=== PATIENT | male | born 1940 | race Caucasian/White ===

== ENCOUNTER 2016-02-05 04:34 | Observation (INO) | payer OTHER ==
[~2016-02-05] VITALS: Ht 185.4 cm; Wt 96.0 kg
[~2016-02-05 04:34] MED LIST: ALLEGRA180 MG PO; AMBIEN10 MG; ASPIR 8181 MG PO; ASPIRIN81 M1 PO; ATIVAN1 M1 PO; ATIVAN1 MG PO; Ambien PO; Aspirin E.C. PO; Ativan PO; BACTRIM,SEPT1 TABLET; BENICAR HCT1 TABLET PO; Bactrim,Septra DS 80 PO; CEFUROXIME500 MG PO; CHILD ASPIRIN81 M1 PO; CLARITIN-D 121 EACH PO; COUMADIN,JANTOVE1 MG PO; Cipro PO; DESYREL100 MG PO; DUONEB 2.5-0.5 M3 ML AEROSOL; DUONEB 2.5-0.5 M3 ML IH; FEOSOL325 MG PO; FLONASE16 G1; FLONASE16 G1 BOTH NARES; Flonase BOTH NARES; GABAPENTIN100 MG PO; GABAPENTIN300 MG PO; LEVAQUIN500 MG PO; LIPITOR40 MG PO; MICARDIS40 MG PO; MONTELUKAST SOD10 MG PO; Micro-K,K-Tab,K-Dur, PO; Milk Of Magnesia,MOM PO; NIASPAN500 MG PO; NIFEDIPINE ER30 MG PO; Niaspan,Slo-Niacin PO; ONE DAILY FOR1 EACH; OXYCODONE5 MG PO; Ocean Nasal 0.65% NS; PERCOCET 7.51 TABLET PO; PLAVIX75 MG PO; PREDNISONE10 M1 PO; PREDNISONE10 MG PO; Percocet 5/325,Endoc PO; Phenergan PO; Plavix PO; Protonix PO; SIMVASTATIN40 M1 PO; SIMVASTATIN40 MG PO; SPIRIVA1 INHALATI IH; SYMBICORT IH; SYMBICORT60 INHALAT IH; THERAGRAN1 TABLET PO; Tylenol Regular Stre PO; ULTRAM50 MG PO; VENTOLIN HFA18 GM IH; VITAMIN A DAY1 EACH PO; ZYRTEC10 M3 PO; Zocor PO; oxyCODONE PO
[2016-02-05 05:34] LABS: HEMATOCRIT 36.2 % (38.0-50.0); MCH 31.6 PG (29.0-34.0); MCHC 32.9 G/DL (30.0-36.0); MCV 96.3 FL (86-99); MEAN PLAT.VOLUME 9.2 uM^3 (9.0-12.4); PLATELET COUNT 266 K/uL (156-360); RBC DIS.WIDTH-CV 16.2 % (11.8-14.6); RBC DIS.WIDTH-SD 54.1 % (39-53); RED BLOOD COUNT 3.76 M/uL (4.00-5.50); WHITE BLOOD COUNT 7.8 K/uL (4.1-10.2)
[2016-02-05 05:36] LABS: EOSINOPHIL (%) 1.9 % (0-5); EOSINOPHIL COUNT 0.2 K/uL (0-0.3); IMMATURE GRANULOCYTE (%) 0.9 % (0.0-0.7); IMMATURE GRANULOCYTE COUNT 0.7 K/uL; LYMPHOCYTE COUNT 1.4 K/uL (1.0-2.8); MONOCYTE (%) 9.8 % (3-12); MONOCYTE COUNT 0.8 K/uL (0-0.8); NEUTROPHIL (%) 68.9 % (45-76); NEUTROPHIL COUNT 5.4 K/uL (1.8-6.4)
[2016-02-05 05:41] LABS: INFLUENZA A VIRAL ANTIGEN NEGATIVE; INFLUENZA B VIRAL ANTIGEN NEGATIVE
[2016-02-05] MEDS ORDERED: MELATIN3 MG PO (05:43)
[2016-02-05 05:44] LABS: CHLORIDE 101 mEq/L (99-109); POTASSIUM 3.6 mEq/L (3.7-5.4); SODIUM 137 mEq/L (136-147)
[2016-02-05 05:46] LABS: GLUCOSE 131 mg/dL (70-99)
[2016-02-05] MEDS ORDERED: ANTIVERT25 MG PO (05:46)
[2016-02-05 05:47] LABS: ANION GAP 13 MEQ/L (2-14)
[2016-02-05 05:48] LABS: TOTAL BILIRUBIN 0.4 mg/dL (0.0-1.0)
[2016-02-05 05:49] LABS: ALKALINE PHOSPHATASE 50 IU/L (3-129)
[2016-02-05 05:50] LABS: GFR ESTIMATE (CALCULATED) > 59 mL/min/
[2016-02-05 05:51] LABS: UREA NITROGEN (BUN) 13 mg/dL (9-23)
[2016-02-05 05:53] LABS: LIPASE 4 U/L (1.0-51.0); TROP-I INTERPRETATION NEGATIVE; TROPONIN-I 0.01 ng/mL (0.0-0.30)
[2016-02-05] MEDS ORDERED: CIPROFLOXACIN500 M1 PO (09:25)
[2016-02-05] MEDS ORDERED: ZOLPIDEM TARTRA10 MG PO (09:26)
[2016-02-05] MEDS ORDERED: NASAL ALLERGY16.9 ML BOTH NARES (09:26)
[2016-02-05] MEDS ORDERED: ADVIL PM1 TABLET PO (09:28)
[2016-02-05 13:00] VITALS: BP 164/78
[2016-02-05 16:00] VITALS: BP 188/83
[2016-02-05 21:33] VITALS: BP 184/79
[2016-02-06 08:07] VITALS: BP 125/60
[2016-02-06 11:53] VITALS: BP 135/68
[2016-02-06 16:13] VITALS: BP 152/74
[2016-02-06 19:30] VITALS: BP 140/68
[2016-02-07 00:08] VITALS: BP 120/65
[2016-02-07 04:32] VITALS: BP 140/64
[2016-02-07 05:58] LABS: HEMATOCRIT 34.2 % (38.0-50.0); MCH 31.7 PG (29.0-34.0); MCHC 32.2 G/DL (30.0-36.0); MCV 98.6 FL (86-99); MEAN PLAT.VOLUME 9.3 uM^3 (9.0-12.4); PLATELET COUNT 258 K/uL (156-360); RBC DIS.WIDTH-CV 16.7 % (11.8-14.6); RBC DIS.WIDTH-SD 59.4 % (39-53); RED BLOOD COUNT 3.47 M/uL (4.00-5.50); WHITE BLOOD COUNT 6.1 K/uL (4.1-10.2)
[2016-02-07 06:45] LABS: ALKALINE PHOSPHATASE 39 IU/L (3-129); ANION GAP 7 MEQ/L (2-14); CHLORIDE 109 MEQ/L (99-109); GFR ESTIMATE (CALCULATED) > 59 mL/min/; GLUCOSE 99 mg/dL (70-99); POTASSIUM 3.4 MEQ/L (3.7-5.4); SAMPLE HEMOLYSIS CHECK 0; SAMPLE ICTERIC CHECK 0; SAMPLE LIPEMIA CHECK 0; SODIUM 141 MEQ/L (136-147); TOTAL BILIRUBIN 0.4 MG/DL (0.0-1.0); UREA NITROGEN (BUN) 16 mg/dL (9-23)
[2016-02-07 08:00] VITALS: BP 109/57
[2016-02-07 11:20] VITALS: BP 143/69
[2016-02-07] MEDS ORDERED: MUCINEX600 MG PO (12:29)
[2016-02-07] MEDS ORDERED: AUGMENTIN875 MG PO (12:29)
== END 2016-02-07 14:15 | disposition home or self-care (01) ==
LOC: EME → EDBD 04:34 → EDOF 09:35 → 5WEST 13:06
PROVIDERS: Emergency Medicine; Internal Medicine
DX: M62.838 Other muscle spasm (principal); I10 Essential (primary) hypertension; J44.9 Chronic obstructive pulmonary disease, unspecified; Z99.81 Dependence on supplemental oxygen; J32.9 Chronic sinusitis, unspecified; R47.81 Slurred speech; R51 Headache; R25.1 Tremor, unspecified; M19.90 Unspecified osteoarthritis, unspecified site
CPT/HCPCS: 70496; 70498; 70551; 71020; 80053; 83605; 83690; 84443; 84484; 85025; 85027; 87040; 87502; 93005; 94640; 94640 76; 94760; 94799; 99202; 99281; 99285; G0378; J0692; J1200; J1650; J7030; J7050

== ENCOUNTER 2016-06-02 17:40 | Inpatient (IN) | payer OTHER ==
[~2016-06-02] VITALS: Ht 185.4 cm; Wt 96.5 kg
[~2016-06-02 17:40] MED LIST changes: +ADVIL PM1 TABLET PO; +ANTIVERT25 MG PO; +AUGMENTIN875 MG PO; +CIPROFLOXACIN500 M1 PO; +MELATIN3 MG PO; +MUCINEX600 MG PO; +NASAL ALLERGY16.9 ML BOTH NARES; +ZOLPIDEM TARTRA10 MG PO
[2016-06-02 18:41] LABS: HEMATOCRIT 36.5 % (38.0-50.0); MCH 29.2 PG (29.0-34.0); MCHC 33.2 G/DL (30.0-36.0); MCV 88.2 FL (86-99); MEAN PLAT.VOLUME 10.1 uM^3 (9.0-12.4); PLATELET COUNT 184 K/uL (156-360); RBC DIS.WIDTH-CV 17.2 % (11.8-14.6); RBC DIS.WIDTH-SD 54.7 % (39-53); RED BLOOD COUNT 4.14 M/uL (4.00-5.50); WHITE BLOOD COUNT 14.5 K/uL (4.1-10.2)
[2016-06-02 18:52] LABS: CHLORIDE 100 mEq/L (99-109); POTASSIUM 5.1 mEq/L (3.7-5.4); SODIUM 135 mEq/L (136-147)
[2016-06-02 18:54] LABS: GLUCOSE 161 mg/dL (70-99)
[2016-06-02 18:55] LABS: ANION GAP 15 MEQ/L (2-14)
[2016-06-02 18:58] LABS: GFR ESTIMATE (CALCULATED) > 59 mL/min/; UREA NITROGEN (BUN) 37 mg/dL (9-23)
[2016-06-02 19:04] LABS: TROP-I INTERPRETATION NEGATIVE; TROPONIN-I 0.07 ng/mL (0.0-0.30)
[2016-06-02 19:05] LABS: BILIRUBIN NEGATIVE; BLOOD NEGATIVE; COLOR YELLOW ((YELLOW)); GLUCOSE (STRIP) NEGATIVE; KETONES NEGATIVE; LEUKOCYTES NEGATIVE; NITRITE NEGATIVE; PROTEIN (STRIP) NEGATIVE; SPECIFIC GRAVITY 1.018 (1.000-1.030); UROBILINOGEN 0.2 MG/DL (0.2-1.0)
[2016-06-02 19:24] LABS: ADD MIUA? NO; UCUL ADDED? NO
[2016-06-02 19:35] LABS: D-DIMER ELISA 0.84 mg/L FEU (< 0.57)
[2016-06-02] MEDS ORDERED: AMBIEN10 MG PO (21:00)
[2016-06-02] MEDS ORDERED: ANTIVERT25 MG PO (21:01)
[2016-06-02] MEDS ORDERED: ALKA-SELTZER P1 EA11 PO (21:01)
[2016-06-02] MEDS ORDERED: DECADRON4 MG PO (21:02)
[2016-06-02 22:05] LABS: PROTHROMBIN TIME 10.1 (9.2-11.2); PTT 20.5 (25-32)
[2016-06-03 14:45] VITALS: BP 154/72
[2016-06-03 17:20] LABS: ANION GAP 8 MEQ/L (2-14); CHLORIDE 102 MEQ/L (99-109); POTASSIUM 3.4 MEQ/L (3.7-5.4); SAMPLE HEMOLYSIS CHECK 0; SAMPLE ICTERIC CHECK 0; SAMPLE LIPEMIA CHECK 0; SODIUM 137 MEQ/L (136-147); TOTAL BILIRUBIN 0.4 MG/DL (0.0-1.0)
[2016-06-03 17:25] LABS: ALKALINE PHOSPHATASE 41 IU/L (3-129); GFR ESTIMATE (CALCULATED) > 59 mL/min/; GLUCOSE 161 mg/dL (70-99); UREA NITROGEN (BUN) 37 mg/dL (9-23)
[2016-06-03 17:30] LABS: TROP-I INTERPRETATION NEGATIVE; TROPONIN-I 0.08 ng/mL (0.0-0.30)
[2016-06-03 20:44] VITALS: BP 154/88
[2016-06-03 23:44] VITALS: BP 158/82
[2016-06-04 03:39] VITALS: BP 170/88
[2016-06-04 08:00] VITALS: BP 196/91
[2016-06-04 12:00] VITALS: BP 118/56
[2016-06-04 15:44] VITALS: BP 128/64
[2016-06-04 19:09] VITALS: BP 130/57
[2016-06-04 23:53] VITALS: BP 131/61
[2016-06-05 04:29] VITALS: BP 150/67
[2016-06-05 07:03] LABS: ALKALINE PHOSPHATASE 34 IU/L (3-129); ANION GAP 7 MEQ/L (2-14); CHLORIDE 103 MEQ/L (99-109); GFR ESTIMATE (CALCULATED) > 59 mL/min/; POTASSIUM 3.5 MEQ/L (3.7-5.4); SAMPLE HEMOLYSIS CHECK 0; SAMPLE ICTERIC CHECK 0; SAMPLE LIPEMIA CHECK 0; SODIUM 138 MEQ/L (136-147); UREA NITROGEN (BUN) 37 mg/dL (9-23)
[2016-06-05 07:11] LABS: GLUCOSE 95 mg/dL (70-99); TOTAL BILIRUBIN 0.5 MG/DL (0.0-1.0)
[2016-06-05 07:15] VITALS: BP 98/51
[2016-06-05 07:42] LABS: HEMATOCRIT 31.8 % (38.0-50.0); MCH 28.6 PG (29.0-34.0); MCHC 30.8 G/DL (30.0-36.0); MEAN PLAT.VOLUME 9.5 uM^3 (9.0-12.4); NRBC (%) 0.2 /100 WBC (0-0); PLATELET COUNT 132 K/uL (156-360); RBC DIS.WIDTH-CV 17.4 % (11.8-14.6); RED BLOOD COUNT 3.43 M/uL (4.00-5.50)
[2016-06-05 08:07] LABS: MCV 92.7 FL (86-99); WHITE BLOOD COUNT 9.8 K/uL (4.1-10.2)
[2016-06-05 11:50] VITALS: BP 130/56
[2016-06-05 15:17] VITALS: BP 125/61
[2016-06-05 20:30] VITALS: BP 130/54
[2016-06-06] VITALS (7 sets, daily range): BP systolic 102–136; BP diastolic 52–63
[2016-06-06 05:58] LABS: HEMATOCRIT 28.3 % (38.0-50.0); MCH 28.9 PG (29.0-34.0); MCHC 31.1 G/DL (30.0-36.0); MCV 93.1 FL (86-99); MEAN PLAT.VOLUME 10.6 uM^3 (9.0-12.4); NRBC (%) 0.2 /100 WBC (0-0); PLATELET COUNT 130 K/uL (156-360); RBC DIS.WIDTH-CV 17.6 % (11.8-14.6); RBC DIS.WIDTH-SD 59.6 % (39-53); RED BLOOD COUNT 3.04 M/uL (4.00-5.50); WHITE BLOOD COUNT 8.2 K/uL (4.1-10.2)
[2016-06-06 06:23] LABS: ALKALINE PHOSPHATASE 33 IU/L (3-129); ANION GAP 8 MEQ/L (2-14); CHLORIDE 107 MEQ/L (99-109); GFR ESTIMATE (CALCULATED) > 59 mL/min/; GLUCOSE 121 mg/dL (70-99); POTASSIUM 3.4 MEQ/L (3.7-5.4); SAMPLE HEMOLYSIS CHECK 0; SAMPLE ICTERIC CHECK 0; SAMPLE LIPEMIA CHECK 0; SODIUM 141 MEQ/L (136-147); TOTAL BILIRUBIN 0.4 MG/DL (0.0-1.0); UREA NITROGEN (BUN) 38 mg/dL (9-23)
[2016-06-07 04:33] VITALS: BP 103/57
[2016-06-07 09:00] VITALS: BP 106/59
[2016-06-07 10:11] LABS: LYME DISEASE SEROLOGY SCREEN NEGATIVE (NEGATIVE)
[2016-06-07 12:30] VITALS: BP 105/51
[2016-06-07 18:20] VITALS: BP 130/60
[2016-06-07 20:07] VITALS: BP 127/60
[2016-06-07 23:47] VITALS: BP 107/52
[2016-06-08 05:39] VITALS: BP 138/59
[2016-06-08 06:24] LABS: EOSINOPHIL COUNT 0.4 K/uL (0-0.3); HEMATOCRIT 27.9 % (38.0-50.0); IMMATURE GRANULOCYTE COUNT 0.1 K/uL; LYMPHOCYTE COUNT 1.4 K/uL (1.0-2.8); MCH 28.8 PG (29.0-34.0); MCHC 30.8 G/DL (30.0-36.0); MCV 93.3 FL (86-99); MEAN PLAT.VOLUME 9.8 uM^3 (9.0-12.4); MONOCYTE (%) 7.2 % (3-12); MONOCYTE COUNT 0.5 K/uL (0-0.8); NEUTROPHIL (%) 63.4 % (45-76); PLATELET COUNT 156 K/uL (156-360); RBC DIS.WIDTH-CV 17.6 % (11.8-14.6); RBC DIS.WIDTH-SD 59.3 % (39-53); RED BLOOD COUNT 2.99 M/uL (4.00-5.50); WHITE BLOOD COUNT 6.4 K/uL (4.1-10.2)
[2016-06-08 06:48] LABS: IRON 48 MCG/DL (35-150)
[2016-06-08 06:52] LABS: ALKALINE PHOSPHATASE 33 IU/L (3-129); ANION GAP 8 MEQ/L (2-14); CHLORIDE 104 MEQ/L (99-109); GFR ESTIMATE (CALCULATED) > 59 mL/min/; GLUCOSE 95 mg/dL (70-99); POTASSIUM 3.3 MEQ/L (3.7-5.4); SAMPLE HEMOLYSIS CHECK 0; SAMPLE ICTERIC CHECK 0; SAMPLE LIPEMIA CHECK 0; SODIUM 139 MEQ/L (136-147); UREA NITROGEN (BUN) 26 mg/dL (9-23)
[2016-06-08 06:54] LABS: TOTAL BILIRUBIN 0.3 MG/DL (0.0-1.0)
[2016-06-08 07:47] VITALS: BP 108/51
[2016-06-08 07:55] LABS: FERRITIN 69 NG/ML (22-322)
[2016-06-08 11:51] VITALS: BP 99/48
[2016-06-08 16:18] VITALS: BP 113/65
[2016-06-08 19:00] VITALS: BP 120/74
[2016-06-08 23:24] VITALS: BP 113/53
[2016-06-09 04:10] VITALS: BP 159/67
[2016-06-09 06:35] LABS: HEMATOCRIT 27.3 % (38.0-50.0); MCHC 30.4 G/DL (30.0-36.0); MCV 95.5 FL (86-99); NRBC (%) 0.8 /100 WBC (0-0); PLATELET COUNT 169 K/uL (156-360); RBC DIS.WIDTH-CV 18.2 % (11.8-14.6); RBC DIS.WIDTH-SD 63.1 % (39-53); RED BLOOD COUNT 2.86 M/uL (4.00-5.50); WHITE BLOOD COUNT 6.6 K/uL (4.1-10.2)
[2016-06-09 06:59] LABS: ALKALINE PHOSPHATASE 39 IU/L (3-129); ANION GAP 6 MEQ/L (2-14); ANION GAP 8 MEQ/L (2-14); CHLORIDE 107 MEQ/L (99-109); CHLORIDE 108 MEQ/L (99-109); GFR ESTIMATE (CALCULATED) > 59 mL/min/; GLUCOSE 122 mg/dL (70-99); SAMPLE HEMOLYSIS CHECK 0; SAMPLE ICTERIC CHECK 0; SAMPLE LIPEMIA CHECK 0; SODIUM 140 MEQ/L (136-147); UREA NITROGEN (BUN) 24 mg/dL (9-23)
[2016-06-09 07:08] LABS: GLUCOSE 119 mg/dL (70-99); POTASSIUM 4.4 MEQ/L (3.7-5.4); POTASSIUM 4.5 MEQ/L (3.7-5.4); TOTAL BILIRUBIN 0.4 MG/DL (0.0-1.0)
[2016-06-09 07:23] VITALS: BP 139/67
[2016-06-09 12:38] VITALS: BP 102/52
[2016-06-09 15:43] LABS: ANTI-NUCLEAR AB SCRN/RFLX(ANA) NONREACTIVE (NONREACTIVE)
[2016-06-09 20:40] VITALS: BP 166/69
[2016-06-10] VITALS (10 sets, daily range): BP systolic 97–159; BP diastolic 55–86
[2016-06-10 06:58] LABS: HEMATOCRIT 25.1 % (38.0-50.0); MCH 29.8 PG (29.0-34.0); MCHC 31.1 G/DL (30.0-36.0); MCV 95.8 FL (86-99); MEAN PLAT.VOLUME 9.7 uM^3 (9.0-12.4); NRBC (%) 0.6 /100 WBC (0-0); PLATELET COUNT 172 K/uL (156-360); RBC DIS.WIDTH-CV 18.3 % (11.8-14.6); RBC DIS.WIDTH-SD 63.5 % (39-53); RED BLOOD COUNT 2.62 M/uL (4.00-5.50); WHITE BLOOD COUNT 6.5 K/uL (4.1-10.2)
[2016-06-11] VITALS: BP 93/45
[2016-06-11 04:58] VITALS: BP 153/67
[2016-06-11 06:44] LABS: EOSINOPHIL (%) 5.3 % (0-5); EOSINOPHIL COUNT 0.3 K/uL (0-0.3); HEMATOCRIT 29.1 % (38.0-50.0); IMMATURE GRANULOCYTE (%) 3.3 % (0.0-0.7); IMMATURE GRANULOCYTE COUNT 0.2 K/uL; LYMPHOCYTE COUNT 1.1 K/uL (1.0-2.8); MCH 29.8 PG (29.0-34.0); MCV 93.3 FL (86-99); MEAN PLAT.VOLUME 9.5 uM^3 (9.0-12.4); MONOCYTE (%) 10.4 % (3-12); MONOCYTE COUNT 0.7 K/uL (0-0.8); NEUTROPHIL (%) 63.3 % (45-76); NRBC (%) 1.6 /100 WBC (0-0); PLATELET COUNT 182 K/uL (156-360); RBC DIS.WIDTH-CV 17.9 % (11.8-14.6); RBC DIS.WIDTH-SD 59.5 % (39-53); RED BLOOD COUNT 3.12 M/uL (4.00-5.50); WHITE BLOOD COUNT 6.3 K/uL (4.1-10.2)
[2016-06-11 07:37] VITALS: BP 125/60
[2016-06-11 11:34] VITALS: BP 109/54
[2016-06-11 12:01] LABS: ANION GAP 6 MEQ/L (2-14); CHLORIDE 107 MEQ/L (99-109); GFR ESTIMATE (CALCULATED) > 59 mL/min/; GLUCOSE 100 mg/dL (70-99); SAMPLE HEMOLYSIS CHECK 0; SAMPLE ICTERIC CHECK 0; SAMPLE LIPEMIA CHECK 0; SODIUM 137 MEQ/L (136-147); UREA NITROGEN (BUN) 8 mg/dL (9-23)
[2016-06-11 12:04] LABS: POTASSIUM 5.3 MEQ/L (3.7-5.4)
[2016-06-11 16:00] VITALS: BP 129/69
[2016-06-11 20:03] VITALS: BP 151/68
[2016-06-12] VITALS (7 sets, daily range): BP systolic 94–137; BP diastolic 56–65
[2016-06-12 06:09] LABS: EOSINOPHIL (%) 5.2 % (0-5); EOSINOPHIL COUNT 0.3 K/uL (0-0.3); IMM.RETIC FRACTION 34.6 % (3-19); IMMATURE GRANULOCYTE (%) 4.2 % (0.0-0.7); IMMATURE GRANULOCYTE COUNT 0.3 K/uL; INSTRUMENT ABS NEUTROPHIL CT 3.8 K/uL; LYMPHOCYTE COUNT 1.1 K/uL (1.0-2.8); MCH 29.4 PG (29.0-34.0); MCHC 31.1 G/DL (30.0-36.0); MCV 94.6 FL (86-99); MEAN PLAT.VOLUME 9.3 uM^3 (9.0-12.4); MONOCYTE (%) 11.4 % (3-12); MONOCYTE COUNT 0.7 K/uL (0-0.8); NEUTROPHIL (%) 61.8 % (45-76); NEUTROPHIL COUNT 3.8 K/uL (1.8-6.4); NRBC (%) 0.7 /100 WBC (0-0); PLATELET COUNT 175 K/uL (156-360); RBC DIS.WIDTH-CV 17.6 % (11.8-14.6); RBC DIS.WIDTH-SD 60.2 % (39-53); RED BLOOD COUNT 2.96 M/uL (4.00-5.50); RETIC HGB EQUIVALENT 29.6 (28-36); RETICULOCYTE COUNT 3.1 % (0.5-1.8); WHITE BLOOD COUNT 6.1 K/uL (4.1-10.2)
[2016-06-12 06:59] LABS: ANION GAP 5 MEQ/L (2-14); CHLORIDE 101 MEQ/L (99-109); POTASSIUM 4.5 MEQ/L (3.7-5.4); SAMPLE HEMOLYSIS CHECK 0; SAMPLE ICTERIC CHECK 0; SAMPLE LIPEMIA CHECK 0; SODIUM 134 MEQ/L (136-147)
[2016-06-12 07:04] LABS: GFR ESTIMATE (CALCULATED) > 59 mL/min/; GLUCOSE 96 mg/dL (70-99); UREA NITROGEN (BUN) 7 mg/dL (9-23)
[2016-06-13 03:45] VITALS: BP 118/60
[2016-06-13 06:40] LABS: EOSINOPHIL (%) 5.8 % (0-5); EOSINOPHIL COUNT 0.3 K/uL (0-0.3); HEMATOCRIT 27.5 % (38.0-50.0); IMMATURE GRANULOCYTE (%) 2.5 % (0.0-0.7); IMMATURE GRANULOCYTE COUNT 0.1 K/uL; INSTRUMENT ABS NEUTROPHIL CT 3.4 K/uL; LYMPHOCYTE COUNT 0.9 K/uL (1.0-2.8); MCH 29.8 PG (29.0-34.0); MCHC 31.3 G/DL (30.0-36.0); MCV 95.2 FL (86-99); MEAN PLAT.VOLUME 9.6 uM^3 (9.0-12.4); MONOCYTE (%) 13.5 % (3-12); MONOCYTE COUNT 0.8 K/uL (0-0.8); NEUTROPHIL (%) 61.4 % (45-76); NEUTROPHIL COUNT 3.4 K/uL (1.8-6.4); PLATELET COUNT 205 K/uL (156-360); RBC DIS.WIDTH-CV 17.2 % (11.8-14.6); RBC DIS.WIDTH-SD 59.7 % (39-53); RED BLOOD COUNT 2.89 M/uL (4.00-5.50); WHITE BLOOD COUNT 5.5 K/uL (4.1-10.2)
[2016-06-13 07:04] LABS: ANION GAP 8 MEQ/L (2-14); CHLORIDE 104 MEQ/L (99-109); GFR ESTIMATE (CALCULATED) > 59 mL/min/; GLUCOSE 102 mg/dL (70-99); POTASSIUM 4.3 MEQ/L (3.7-5.4); SAMPLE HEMOLYSIS CHECK 0; SAMPLE ICTERIC CHECK 0; SAMPLE LIPEMIA CHECK 0; SODIUM 137 MEQ/L (136-147); UREA NITROGEN (BUN) 11 mg/dL (9-23)
[2016-06-13 07:58] VITALS: BP 106/52
[2016-06-13 10:01] LABS: ALBUMIN 2.72 G/DL (3.6-4.9); ALBUMIN PERCENT 55.5 %; ALPHA-1 GLOBULIN 0.29 G/DL (0.15-0.40); ALPHA-1 PERCENT 5.9 %; ALPHA-2 GLOBULIN 0.86 G/DL (0.45-0.85); ALPHA-2 PERCENT 17.6 %
[2016-06-13 10:02] LABS: BETA PERCENT 14.6 %; GAMMA PERCENT 6.4 %
[2016-06-13 11:19] VITALS: BP 109/54
[2016-06-13 15:56] VITALS: BP 114/56
[2016-06-13 19:00] VITALS: BP 133/61
[2016-06-13 23:34] VITALS: BP 100/50
[2016-06-14 04:18] VITALS: BP 125/56
[2016-06-14 07:01] LABS: EOSINOPHIL (%) 5.3 % (0-5); EOSINOPHIL COUNT 0.4 K/uL (0-0.3); HEMATOCRIT 27.9 % (38.0-50.0); IMMATURE GRANULOCYTE (%) 2.3 % (0.0-0.7); IMMATURE GRANULOCYTE COUNT 0.2 K/uL; INSTRUMENT ABS NEUTROPHIL CT 4.4 K/uL; LYMPHOCYTE COUNT 0.9 K/uL (1.0-2.8); MCH 29.2 PG (29.0-34.0); MCHC 30.5 G/DL (30.0-36.0); MCV 95.9 FL (86-99); MEAN PLAT.VOLUME 9.7 uM^3 (9.0-12.4); MONOCYTE (%) 13.3 % (3-12); MONOCYTE COUNT 0.9 K/uL (0-0.8); NEUTROPHIL (%) 65.4 % (45-76); NEUTROPHIL COUNT 4.4 K/uL (1.8-6.4); PLATELET COUNT 243 K/uL (156-360); RBC DIS.WIDTH-CV 17.2 % (11.8-14.6); RBC DIS.WIDTH-SD 59.8 % (39-53); RED BLOOD COUNT 2.91 M/uL (4.00-5.50); WHITE BLOOD COUNT 6.6 K/uL (4.1-10.2)
[2016-06-14 07:06] VITALS: BP 123/56
[2016-06-14 07:34] LABS: ALKALINE PHOSPHATASE 42 IU/L (3-129); ANION GAP 5 MEQ/L (2-14); CHLORIDE 104 MEQ/L (99-109); GFR ESTIMATE (CALCULATED) > 59 mL/min/; GLUCOSE 106 mg/dL (70-99); POTASSIUM 4.5 MEQ/L (3.7-5.4); SAMPLE HEMOLYSIS CHECK 0; SAMPLE ICTERIC CHECK 0; SAMPLE LIPEMIA CHECK 0; SODIUM 139 MEQ/L (136-147); UREA NITROGEN (BUN) 11 mg/dL (9-23)
[2016-06-14 07:35] LABS: TOTAL BILIRUBIN 0.7 MG/DL (0.0-1.0)
[2016-06-14 10:24] LABS: IFE GEL NO. 56-7
[2016-06-14 10:45] LABS: ABS NEUTROPHIL COUNT 5.1; ANISOCYTOSIS 2+; ATYPICAL LYMPHOCYTE 2.6 %; BAND NEUTROPHILS 0.9 % (0-8.0); BASOPHILS 0.9 %; EOSINOPHIL ABS CT 0.3; EOSINOPHILS 5.3 % (0-5.0); LYMPHOCYTES 6.1 % (15.0-45.0); MACROCYTES 1+; METAMYELOCYTES 0.9 %; MICROCYTOSIS 1+; MYELOCYTES 0.9 %; PLAT.SUFFICIENCY ADEQUATE; POLYCHROMASIA 1+; SCHISTOCYTES 1+; SEG.NEUTROPHILS 76.3 % (46.0-76.0)
[2016-06-14 11:49] VITALS: BP 100/53
[2016-06-14] MEDS ORDERED: TAMSULOSIN HCL0.4 MG PO (14:07)
[2016-06-14] MEDS ORDERED: XARELTO20 MG PO (14:08)
[2016-06-14] MEDS ORDERED: ZOLPIDEM TARTRAT5 MG PO (14:12)
[2016-06-14] MEDS ORDERED: K-DUR20 MEQ PO (14:12)
[2016-06-14] MEDS ORDERED: PANTOPRAZOLE SO40 MG PO (14:13)
[2016-06-14] MEDS ORDERED: DECADRON4 MG PO (14:13)
[2016-06-14 16:19] VITALS: BP 118/53
[2016-06-16 16:43] LABS: Flow Clinical Information ANEMIA (()); Flow Number of Markers 22 (()); Flow Spec Viability 97 % (()); Flow Specimen Type BONE MARROW (())
== END 2016-06-14 16:23 | DRG 149 ==
LOC: EME 17:40 → 4EAST 21:10 → EDOF 21:10 → 4EAST 06-03 14:04 → 2EAST 06-11 15:53
PROVIDERS: Emergency Medicine; Family Medicine; Internal Medicine; Internal Medicine Hematology & Oncology; Specialist
DX: R42 Dizziness and giddiness (principal); D64.9 Anemia, unspecified; R53.1 Weakness; I48.91 Unspecified atrial fibrillation; I10 Essential (primary) hypertension; M19.90 Unspecified osteoarthritis, unspecified site; E78.5 Hyperlipidemia, unspecified; I25.10 Atherosclerotic heart disease of native coronary artery without angina pectoris; K21.9 Gastro-esophageal reflux disease without esophagitis; I71.9 Aortic aneurysm of unspecified site, without rupture; Z79.82 Long term (current) use of aspirin; Z88.2 Allergy status to sulfonamides; Z88.8 Allergy status to other drugs, medicaments and biological substances; K31.819 Angiodysplasia of stomach and duodenum without bleeding; K29.70 Gastritis, unspecified, without bleeding; K64.8 Other hemorrhoids; K22.10 Ulcer of esophagus without bleeding
CPT/HCPCS: 70450; 71020; 71275; 74160; 77012; 80048; 80053; 81003; 82272; 82533 91; 82607; 82728; 82746; 83540; 83880; 83883 90; 84165; 84443; 84466; 84484; 85007; 85025; 85027; 85045; 85379; 85610; 85651; 85730; 85999; 86038; 86140; 86334; 86618; 86900; 86901; 86920; 88305; 88312; 93005; 93306; 94640; 94760; 94799; 97530 GO; 97530 GP; 99202; 99281; 99285; J1940; J3010; J3475; J3480; J7030; P9016

== ENCOUNTER 2016-06-26 15:27 | Inpatient (IN) | payer OTHER ==
[~2016-06-26] VITALS: Ht 185.4 cm; Wt 210.0 kg
[~2016-06-26 15:27] MED LIST changes: +ALKA-SELTZER P1 EA11 PO; +AMBIEN10 MG PO; +DECADRON4 MG PO; +K-DUR20 MEQ PO; +PANTOPRAZOLE SO40 MG PO; +TAMSULOSIN HCL0.4 MG PO; +XARELTO20 MG PO; +ZOLPIDEM TARTRAT5 MG PO
[2016-06-26 16:02] LABS: HEMATOCRIT 23.7 % (38.0-50.0); MCH 29.2 PG (29.0-34.0); MCHC 31.2 G/DL (30.0-36.0); MCV 93.7 FL (86-99); MEAN PLAT.VOLUME 9.3 uM^3 (9.0-12.4); NRBC (%) 0.4 /100 WBC (0-0); PLATELET COUNT 306 K/uL (156-360); RBC DIS.WIDTH-CV 17.7 % (11.8-14.6); RBC DIS.WIDTH-SD 59.5 % (39-53); RED BLOOD COUNT 2.53 M/uL (4.00-5.50)
[2016-06-26 16:05] LABS: INTER. NORMALIZED RATIO 1.4; PROTHROMBIN TIME 14.1 (9.2-11.2)
[2016-06-26 16:11] LABS: PTT 35.5 (25-32)
[2016-06-26 16:15] LABS: TROP-I INTERPRETATION NEGATIVE
[2016-06-26 16:16] LABS: CHLORIDE 101 mEq/L (99-109); POTASSIUM 4.1 mEq/L (3.7-5.4); SODIUM 135 mEq/L (136-147)
[2016-06-26 16:18] LABS: GLUCOSE 174 mg/dL (70-99)
[2016-06-26 16:19] LABS: ANION GAP 11 MEQ/L (2-14)
[2016-06-26 16:21] LABS: GFR ESTIMATE (CALCULATED) > 59 mL/min/
[2016-06-26 16:22] LABS: UREA NITROGEN (BUN) 19 mg/dL (9-23)
[2016-06-26 18:02] LABS: ABS NEUTROPHIL COUNT 10.1; ANISOCYTOSIS 1+; ATYPICAL LYMPHOCYTE 1.7 %; EOSINOPHIL ABS CT 0; LYMPHOCYTES 6.1 % (15.0-45.0); PLAT.SUFFICIENCY ADEQUATE; POLYCHROMASIA 1+; SEG.NEUTROPHILS 84.4 % (46.0-76.0); SMUDGE CELLS 2.6
[2016-06-26] MEDS ORDERED: PANTOPRAZOLE SO40 MG PO (19:10)
[2016-06-26 20:10] VITALS: BP 133/74
[2016-06-26 20:30] VITALS: BP 129/67
[2016-06-26 20:57] VITALS: BP 148/67
[2016-06-26 21:30] VITALS: BP 142/99
[2016-06-26 22:30] VITALS: BP 150/63
[2016-06-26 23:15] VITALS: BP 141/63
[2016-06-27] VITALS (14 sets, daily range): BP systolic 119–181; BP diastolic 50–86
[2016-06-27 07:38] LABS: HEMATOCRIT 26.8 % (38.0-50.0); MCV 91.5 FL (86-99)
[2016-06-27 11:03] LABS: HEMATOCRIT 27.4 % (38.0-50.0); MCV 92.6 FL (86-99)
[2016-06-27 16:01] LABS: HEMATOCRIT 28.8 % (38.0-50.0); MCV 91.1 FL (86-99)
[2016-06-28 00:03] VITALS: BP 133/62
[2016-06-28 03:40] VITALS: BP 133/62
[2016-06-28 07:37] VITALS: BP 140/61
[2016-06-28 09:06] LABS: POC NON-PRINT COM 1 ND
[2016-06-28 11:37] VITALS: BP 137/60
[2016-06-28 12:14] LABS: HEMATOCRIT 31.9 % (38.0-50.0); MCH 29.5 PG (29.0-34.0); MCHC 32.6 G/DL (30.0-36.0); MCV 90.6 FL (86-99); MEAN PLAT.VOLUME 9.7 uM^3 (9.0-12.4); PLATELET COUNT 262 K/uL (156-360); RBC DIS.WIDTH-CV 16.6 % (11.8-14.6); WHITE BLOOD COUNT 9.9 K/uL (4.1-10.2)
[2016-06-28 12:24] LABS: RED BLOOD COUNT 3.52 M/uL (4.00-5.50)
[2016-06-28 14:39] VITALS: BP 166/75
[2016-06-28 19:18] VITALS: BP 136/63
[2016-06-29] VITALS (8 sets, daily range): BP systolic 128–182; BP diastolic 60–84
[2016-06-29 09:03] LABS: HEMATOCRIT 32.4 % (38.0-50.0); MCH 28.8 PG (29.0-34.0); MCHC 32.1 G/DL (30.0-36.0); MCV 89.8 FL (86-99); MEAN PLAT.VOLUME 9.8 uM^3 (9.0-12.4); PLATELET COUNT 265 K/uL (156-360); RBC DIS.WIDTH-CV 15.8 % (11.8-14.6); RBC DIS.WIDTH-SD 51.9 % (39-53); RED BLOOD COUNT 3.61 M/uL (4.00-5.50)
[2016-06-29 09:04] LABS: WHITE BLOOD COUNT 4.3 K/uL (4.1-10.2)
[2016-06-29 09:07] LABS: ALKALINE PHOSPHATASE 43 IU/L (3-129); ANION GAP 9 MEQ/L (2-14); CHLORIDE 103 MEQ/L (99-109); GFR ESTIMATE (CALCULATED) > 59 mL/min/; GLUCOSE 158 mg/dL (70-99); POTASSIUM 3.6 MEQ/L (3.7-5.4); SAMPLE HEMOLYSIS CHECK 0; SAMPLE ICTERIC CHECK 0; SAMPLE LIPEMIA CHECK 0; SODIUM 137 MEQ/L (136-147); TOTAL BILIRUBIN 0.5 MG/DL (0.0-1.0); UREA NITROGEN (BUN) 11 mg/dL (9-23)
[2016-06-30 00:04] VITALS: BP 131/56
[2016-06-30 07:17] VITALS: BP 155/67
[2016-06-30 08:12] LABS: HEMATOCRIT 31.6 % (38.0-50.0); MCH 28.9 PG (29.0-34.0); MCV 90.5 FL (86-99); MEAN PLAT.VOLUME 9.5 uM^3 (9.0-12.4); PLATELET COUNT 261 K/uL (156-360); RBC DIS.WIDTH-CV 16.2 % (11.8-14.6); RBC DIS.WIDTH-SD 53.1 % (39-53); RED BLOOD COUNT 3.49 M/uL (4.00-5.50)
[2016-06-30 15:32] VITALS: BP 172/76
[2016-06-30 19:16] VITALS: BP 181/79
[2016-06-30 22:28] VITALS: BP 124/59
[2016-06-30 23:05] VITALS: BP 135/61
[2016-07-01 03:49] VITALS: BP 144/72
[2016-07-01 07:51] VITALS: BP 144/74
[2016-07-01 12:08] VITALS: BP 170/79
[2016-07-01 16:45] VITALS: BP 177/75
[2016-07-01 20:12] VITALS: BP 174/83
[2016-07-02 00:39] VITALS: BP 144/68
[2016-07-02 05:38] VITALS: BP 172/75
[2016-07-02 06:34] LABS: HEMATOCRIT 30.3 % (38.0-50.0); MCH 29.6 PG (29.0-34.0); MCHC 32.7 G/DL (30.0-36.0); MCV 90.7 FL (86-99); MEAN PLAT.VOLUME 9.6 uM^3 (9.0-12.4); PLATELET COUNT 237 K/uL (156-360); RBC DIS.WIDTH-CV 15.7 % (11.8-14.6); RBC DIS.WIDTH-SD 51.9 % (39-53); RED BLOOD COUNT 3.34 M/uL (4.00-5.50); WHITE BLOOD COUNT 7.2 K/uL (4.1-10.2)
[2016-07-02 07:14] VITALS: BP 170/80
[2016-07-02 11:20] VITALS: BP 128/60
[2016-07-02] MEDS ORDERED: CEFDINIR300 MG PO (15:22)
[2016-07-02] MEDS ORDERED: CORTISPORI200 DROPS/ BOTH EARS (15:22)
[2016-07-02] MEDS ORDERED: TYLENOL REGULA325 MG PO (15:22)
[2016-07-02] MEDS ORDERED: HYDRALAZINE HCL50 MG PO (15:22)
[2016-07-02] MEDS ORDERED: SLOW RELEASE I160 MG PO (15:25)
[2016-07-02] MEDS ORDERED: PAROXETINE HCL20 MG PO (15:25)
== END 2016-07-02 16:15 | disposition home health service (06) | DRG 378 ==
LOC: EME 15:27 → EDOF 19:07 → 5EAST 19:07
PROVIDERS: Emergency Medicine; Internal Medicine; Specialist
PROC: 30233N1 Transfusion of Nonautologous Red Blood Cells into Peripheral Vein, Percutaneous Approach (ICD-10-PCS; principal; 2016-06-26)
PROC: 0DJ08ZZ Inspection of Upper Intestinal Tract, Via Natural or Artificial Opening Endoscopic (ICD-10-PCS; 2016-06-27)
PROC: 0DJD8ZZ Inspection of Lower Intestinal Tract, Via Natural or Artificial Opening Endoscopic (ICD-10-PCS; 2016-06-29)
DX: K92.2 Gastrointestinal hemorrhage, unspecified (principal); Q27.33 Arteriovenous malformation of digestive system vessel; I48.0 Paroxysmal atrial fibrillation; I25.10 Atherosclerotic heart disease of native coronary artery without angina pectoris; I71.4 Abdominal aortic aneurysm, without rupture; I10 Essential (primary) hypertension; E78.5 Hyperlipidemia, unspecified; K57.10 Diverticulosis of small intestine without perforation or abscess without bleeding; M19.90 Unspecified osteoarthritis, unspecified site; K20.9 Esophagitis, unspecified; R53.1 Weakness; D64.9 Anemia, unspecified; F33.9 Major depressive disorder, recurrent, unspecified; K31.819 Angiodysplasia of stomach and duodenum without bleeding; K22.10 Ulcer of esophagus without bleeding; K57.30 Diverticulosis of large intestine without perforation or abscess without bleeding; R19.5 Other fecal abnormalities; K64.8 Other hemorrhoids; J98.4 Other disorders of lung; Z98.61 Coronary angioplasty status; Z79.01 Long term (current) use of anticoagulants; Z79.02 Long term (current) use of antithrombotics/antiplatelets; Z79.82 Long term (current) use of aspirin; Z88.2 Allergy status to sulfonamides; Z87.891 Personal history of nicotine dependence
CPT/HCPCS: 70486; 71010; 71275; 74250; 80048; 80053; 82272; 84484; 85014; 85018; 85025; 85027; 85610; 85730; 86900; 86901; 86920; 93005; 94799; 97530 GO; 99281; 99285; C9113; J0360; J0696; J2920; J7030; J7050; P9016

== ENCOUNTER 2016-07-06 14:06 | Inpatient (IN) | payer OTHER ==
[~2016-07-06] VITALS: Ht 185.4 cm; Wt 98.5 kg
[~2016-07-06 14:06] MED LIST changes: +CEFDINIR300 MG PO; +CORTISPORI200 DROPS/ BOTH EARS; +HYDRALAZINE HCL50 MG PO; +PAROXETINE HCL20 MG PO; +SLOW RELEASE I160 MG PO; +TYLENOL REGULA325 MG PO
[2016-07-06 15:03] LABS: PROTHROMBIN TIME 9.8 (9.2-11.2)
[2016-07-06 15:11] LABS: CHLORIDE 100 mEq/L (99-109)
[2016-07-06 15:12] LABS: MAGNESIUM 1.9 mg/dL (1.3-2.7); POTASSIUM 4.4 mEq/L (3.7-5.4); SODIUM 135 mEq/L (136-147)
[2016-07-06 15:13] LABS: GLUCOSE 157 mg/dL (70-99)
[2016-07-06 15:15] LABS: ANION GAP 10 MEQ/L (2-14); TROP-I INTERPRETATION NEGATIVE; TROPONIN-I 0.03 ng/mL (0.0-0.30)
[2016-07-06 15:16] LABS: MCH 28.9 PG (29.0-34.0); MCHC 31.4 G/DL (30.0-36.0); MCV 92.1 FL (86-99); RBC DIS.WIDTH-SD 53.9 % (39-53); WHITE BLOOD COUNT 13.3 K/uL (4.1-10.2)
[2016-07-06 15:17] LABS: GFR ESTIMATE (CALCULATED) > 59 mL/min/
[2016-07-06 15:18] LABS: UREA NITROGEN (BUN) 17 mg/dL (9-23)
[2016-07-06 15:51] LABS: MEAN PLAT.VOLUME 9.8 uM^3 (9.0-12.4); PLAT.SUFFICIENCY ADEQUATE
[2016-07-06 15:53] LABS: PLATELET COUNT 165 K/uL (156-360)
[2016-07-06] MEDS ORDERED: PAXIL20 MG PO (17:22)
[2016-07-06] MEDS ORDERED: K-DUR20 MEQ PO (17:24)
[2016-07-06] MEDS ORDERED: TAMSULOSIN HCL0.4 MG PO (17:25)
[2016-07-06] MEDS ORDERED: AMBIEN5 MG PO (17:26)
[2016-07-06 23:31] VITALS: BP 127/60
[2016-07-07 04:31] VITALS: BP 139/63
[2016-07-07 06:31] LABS: HEMATOCRIT 31.8 % (38.0-50.0); MCH 28.9 PG (29.0-34.0); MCHC 31.1 G/DL (30.0-36.0); MCV 92.7 FL (86-99); MEAN PLAT.VOLUME 10.2 uM^3 (9.0-12.4); PLATELET COUNT 181 K/uL (156-360); RBC DIS.WIDTH-SD 54.9 % (39-53); RED BLOOD COUNT 3.43 M/uL (4.00-5.50)
[2016-07-07 06:35] LABS: WHITE BLOOD COUNT 6.5 K/uL (4.1-10.2)
[2016-07-07 06:54] LABS: ALKALINE PHOSPHATASE 48 IU/L (3-129); ANION GAP 7 MEQ/L (2-14); CHLORIDE 102 MEQ/L (99-109); GFR ESTIMATE (CALCULATED) > 59 mL/min/; GLUCOSE 172 mg/dL (70-99); POTASSIUM 4.7 MEQ/L (3.7-5.4); SAMPLE HEMOLYSIS CHECK 0; SAMPLE ICTERIC CHECK 0; SAMPLE LIPEMIA CHECK 0; SODIUM 136 MEQ/L (136-147); TOTAL BILIRUBIN 0.4 MG/DL (0.0-1.0); UREA NITROGEN (BUN) 19 mg/dL (9-23)
[2016-07-07 07:33] VITALS: BP 116/58
[2016-07-07 11:15] VITALS: BP 140/65
[2016-07-07 15:46] VITALS: BP 116/58
[2016-07-07 19:38] VITALS: BP 129/60
[2016-07-08 00:30] VITALS: BP 135/60
[2016-07-08 04:14] VITALS: BP 112/55
[2016-07-08 07:35] LABS: ANION GAP 7 MEQ/L (2-14); CHLORIDE 107 MEQ/L (99-109); GFR ESTIMATE (CALCULATED) > 59 mL/min/; GLUCOSE 158 mg/dL (70-99); POTASSIUM 4.4 MEQ/L (3.7-5.4); SAMPLE HEMOLYSIS CHECK 0; SAMPLE ICTERIC CHECK 0; SAMPLE LIPEMIA CHECK 0; SODIUM 138 MEQ/L (136-147); UREA NITROGEN (BUN) 26 mg/dL (9-23)
[2016-07-08 07:36] VITALS: BP 118/56
[2016-07-08 07:40] LABS: EOSINOPHIL (%) 0 % (0-5); IMMATURE GRANULOCYTE (%) 1.7 % (0.0-0.7); IMMATURE GRANULOCYTE COUNT 0.2 K/uL; INSTRUMENT ABS NEUTROPHIL CT 11.5 K/uL; LYMPHOCYTE COUNT 0.5 K/uL (1.0-2.8); MCH 29.1 PG (29.0-34.0); MCHC 31.3 G/DL (30.0-36.0); MCV 93.1 FL (86-99); MEAN PLAT.VOLUME 10.2 uM^3 (9.0-12.4); MONOCYTE (%) 2.9 % (3-12); MONOCYTE COUNT 0.4 K/uL (0-0.8); NEUTROPHIL (%) 91.5 % (45-76); NEUTROPHIL COUNT 11.5 K/uL (1.8-6.4); PLATELET COUNT 208 K/uL (156-360); RBC DIS.WIDTH-SD 55.1 % (39-53); RED BLOOD COUNT 3.33 M/uL (4.00-5.50)
[2016-07-08 07:46] LABS: WHITE BLOOD COUNT 12.6 K/uL (4.1-10.2)
[2016-07-08 15:49] VITALS: BP 113/57
[2016-07-08 16:52] LABS: ADD MIUA? NO; BILIRUBIN NEGATIVE; BLOOD NEGATIVE; COLOR YELLOW ((YELLOW)); GLUCOSE (STRIP) NEGATIVE; KETONES NEGATIVE; LEUKOCYTES NEGATIVE; NITRITE NEGATIVE; PROTEIN (STRIP) NEGATIVE; SPECIFIC GRAVITY 1.031 (1.000-1.030); UROBILINOGEN 0.2 MG/DL (0.2-1.0)
[2016-07-08] MEDS ORDERED: LOPRESSOR25 MG PO (17:56)
[2016-07-08] MEDS ORDERED: DILTIAZEM 24HR120 MG PO (17:56)
[2016-07-08] MEDS ORDERED: NIFEREX-150,FE150 MG PO (17:57)
[2016-07-08] MEDS ORDERED: ALTOPREV40 MG PO (17:58)
[2016-07-09] MEDS ORDERED: ALTOPREV40 MG PO (01:54)
== END 2016-07-08 19:06 | disposition home or self-care (01) | DRG 309 ==
LOC: EME 14:06 → EDOF 18:05 → 5EAST 18:05
PROVIDERS: Emergency Medicine; Internal Medicine
DX: I48.0 Paroxysmal atrial fibrillation (principal); J44.1 Chronic obstructive pulmonary disease with (acute) exacerbation; R42 Dizziness and giddiness; I10 Essential (primary) hypertension; K21.9 Gastro-esophageal reflux disease without esophagitis; F41.9 Anxiety disorder, unspecified; I25.10 Atherosclerotic heart disease of native coronary artery without angina pectoris; I95.1 Orthostatic hypotension; E86.0 Dehydration; E78.5 Hyperlipidemia, unspecified; I35.0 Nonrheumatic aortic (valve) stenosis; Z99.81 Dependence on supplemental oxygen; Z88.2 Allergy status to sulfonamides; Z87.891 Personal history of nicotine dependence; Z95.5 Presence of coronary angioplasty implant and graft; Z79.02 Long term (current) use of antithrombotics/antiplatelets
CPT/HCPCS: 71010; 80048; 80053; 81003; 83735; 83880; 84484; 85025; 85027; 85610; 93005; 94640; 94799; 99202; 99281; 99285; J0696; J2060; J2920; J2930; J7030; J7050; J7644

== ENCOUNTER 2016-07-08 23:06 | Inpatient (IN) | payer OTHER ==
[~2016-07-08] VITALS: Ht 185.4 cm; Wt 95.7 kg
[~2016-07-08 23:06] MED LIST changes: +ALTOPREV40 MG PO; +AMBIEN5 MG PO; +DILTIAZEM 24HR120 MG PO; +LOPRESSOR25 MG PO; +NIFEREX-150,FE150 MG PO; +PAXIL20 MG PO
[2016-07-08 23:54] LABS: HEMATOCRIT 32.4 % (38.0-50.0); MCH 29.6 PG (29.0-34.0); MCHC 31.8 G/DL (30.0-36.0); MCV 93.1 FL (86-99); RBC DIS.WIDTH-CV 16.2 % (11.8-14.6); RED BLOOD COUNT 3.48 M/uL (4.00-5.50)
[2016-07-08 23:57] LABS: CHLORIDE 107 mEq/L (99-109); SODIUM 137 mEq/L (136-147)
[2016-07-09] VITALS (7 sets, daily range): BP systolic 110–140; BP diastolic 51–65
[2016-07-09] LABS: GLUCOSE 291 mg/dL (70-99)
[2016-07-09 00:01] LABS: ANION GAP 10 MEQ/L (2-14); TOTAL BILIRUBIN 0.2 mg/dL (0.0-1.0)
[2016-07-09 00:03] LABS: ALKALINE PHOSPHATASE 56 IU/L (3-129); GFR ESTIMATE (CALCULATED) > 59 mL/min/
[2016-07-09 00:04] LABS: PROTHROMBIN TIME 10.1 (9.2-11.2); UREA NITROGEN (BUN) 35 mg/dL (9-23)
[2016-07-09 00:12] LABS: D-DIMER ELISA > 4.00 mg/L FEU (< 0.57); TROP-I INTERPRETATION NEGATIVE; TROPONIN-I < 0.01 ng/mL (0.0-0.30)
[2016-07-09 00:46] LABS: PLATELET COUNT UNABLE TO REPORT K/uL (156-360)
[2016-07-09 00:47] LABS: ABS NEUTROPHIL COUNT 12.9; ANISOCYTOSIS 1+; BURR CELLS 1+; EOSINOPHIL ABS CT 0; HEMATOLOGY COMMENT 1 SN; INSTRUMENT ABS NEUTROPHIL CT 11.5 K/uL; LYMPHOCYTES 0.9 % (15.0-45.0); MICROCYTOSIS 1+; PLAT.SUFFICIENCY ADEQUATE; PLATELET CLUMPS PRESENT - PLATELET COUNTS APPEARS DECREASED; POIKILOCYTOSIS 1+; POLYCHROMASIA 1+; SEG.NEUTROPHILS 99.1 % (46.0-76.0)
[2016-07-09] MEDS ORDERED: ALTOPREV40 MG PO (01:54)
[2016-07-09 02:07] LABS: PTT 22.6 (25-32)
[2016-07-10 04:00] VITALS: BP 112/58
[2016-07-10 07:09] LABS: HEMATOCRIT 30.4 % (38.0-50.0); MCH 29.6 PG (29.0-34.0); MCHC 31.9 G/DL (30.0-36.0); MCV 92.7 FL (86-99); MEAN PLAT.VOLUME 10.4 uM^3 (9.0-12.4); PLATELET COUNT 226 K/uL (156-360); RBC DIS.WIDTH-CV 16.3 % (11.8-14.6); RED BLOOD COUNT 3.28 M/uL (4.00-5.50); WHITE BLOOD COUNT 10.9 K/uL (4.1-10.2)
[2016-07-10 07:44] LABS: ALKALINE PHOSPHATASE 46 IU/L (3-129); ANION GAP 10 MEQ/L (2-14); CHLORIDE 105 MEQ/L (99-109); GFR ESTIMATE (CALCULATED) > 59 mL/min/; POTASSIUM 3.9 MEQ/L (3.7-5.4); SAMPLE HEMOLYSIS CHECK 0; SAMPLE ICTERIC CHECK 0; SAMPLE LIPEMIA CHECK 0; SODIUM 141 MEQ/L (136-147); UREA NITROGEN (BUN) 39 mg/dL (9-23)
[2016-07-10 07:50] LABS: GLUCOSE 128 mg/dL (70-99); TOTAL BILIRUBIN 0.2 MG/DL (0.0-1.0)
[2016-07-10 09:31] VITALS: BP 119/59
[2016-07-10 10:49] VITALS: BP 115/55
[2016-07-10 16:05] VITALS: BP 120/60
[2016-07-10 20:04] VITALS: BP 144/67
[2016-07-10 21:16] LABS: POINT-OF-CARE METER ID UU13113781
[2016-07-10 23:06] VITALS: BP 102/53
[2016-07-11 04:35] VITALS: BP 113/62
[2016-07-11 07:07] LABS: HEMATOCRIT 30.2 % (38.0-50.0); MCH 28.5 PG (29.0-34.0); MCHC 30.8 G/DL (30.0-36.0); MCV 92.6 FL (86-99); MEAN PLAT.VOLUME 10.5 uM^3 (9.0-12.4); NRBC (%) 0.2 /100 WBC (0-0); PLATELET COUNT 234 K/uL (156-360); RBC DIS.WIDTH-CV 16.5 % (11.8-14.6); RBC DIS.WIDTH-SD 55.8 % (39-53); RED BLOOD COUNT 3.26 M/uL (4.00-5.50); WHITE BLOOD COUNT 9.7 K/uL (4.1-10.2)
[2016-07-11 07:51] VITALS: BP 160/72
[2016-07-11 07:52] LABS: ALKALINE PHOSPHATASE 47 IU/L (3-129); ANION GAP 9 MEQ/L (2-14); CHLORIDE 103 MEQ/L (99-109); GFR ESTIMATE (CALCULATED) > 59 mL/min/; GLUCOSE 96 mg/dL (70-99); POTASSIUM 3.9 MEQ/L (3.7-5.4); SAMPLE HEMOLYSIS CHECK 0; SAMPLE ICTERIC CHECK 0; SAMPLE LIPEMIA CHECK 0; SODIUM 139 MEQ/L (136-147); UREA NITROGEN (BUN) 35 mg/dL (9-23)
[2016-07-11 07:53] LABS: TOTAL BILIRUBIN 0.3 MG/DL (0.0-1.0)
[2016-07-11 08:41] LABS: Estimated Average Glucose 137 mg/dL (70-123); HEMOGLOBIN A1c (GLYCOHEMOGLOB) 6.4 % HGB (Below 5.7)
[2016-07-11 12:20] VITALS: BP 140/63
[2016-07-11 16:33] VITALS: BP 114/60
[2016-07-11 19:20] VITALS: BP 116/56
[2016-07-11 23:20] VITALS: BP 111/55
[2016-07-12 03:45] VITALS: BP 118/61
[2016-07-12 08:17] LABS: POINT-OF-CARE METER ID UU13113781
[2016-07-12 08:19] VITALS: BP 130/89
[2016-07-12 11:24] VITALS: BP 117/56
[2016-07-12 12:12] LABS: POINT-OF-CARE METER ID UU13113781
[2016-07-12 16:29] VITALS: BP 106/59
[2016-07-12 17:15] LABS: POINT-OF-CARE METER ID UU13113781
[2016-07-12 20:12] VITALS: BP 108/54
[2016-07-12 20:25] LABS: POINT-OF-CARE METER ID UU13113781
[2016-07-12 23:37] VITALS: BP 133/56
[2016-07-13 05:04] VITALS: BP 138/65
[2016-07-13 07:56] LABS: POINT-OF-CARE METER ID UU13113781; POINT-OF-CARE USER ID ENVKC36
[2016-07-13 08:00] VITALS: BP 130/60
[2016-07-13 11:43] VITALS: BP 121/56
[2016-07-13 11:56] LABS: POINT-OF-CARE USER ID ENVKC36
[2016-07-13 16:32] LABS: POINT-OF-CARE METER ID UU13113781; POINT-OF-CARE USER ID ENVKC36
[2016-07-13 16:45] VITALS: BP 134/61
[2016-07-13 19:24] VITALS: BP 126/60
[2016-07-14 01:33] VITALS: BP 137/63
[2016-07-14 05:20] VITALS: BP 127/82
[2016-07-14 07:38] VITALS: BP 106/60
[2016-07-14 12:10] VITALS: BP 132/68
[2016-07-14] MEDS ORDERED: ELIQUIS5 MG PO (16:10)
[2016-07-14] MEDS ORDERED: FUROSEMIDE40 MG PO (16:11)
[2016-07-14] MEDS ORDERED: ADVAIR HFA120 INHALA IH (16:11)
[2016-07-14] MEDS ORDERED: THERAGRAN1 TABLET PO (16:12)
[2016-07-14] MEDS ORDERED: SPIRIVA RESPIMAT4 GM IH (16:13)
[2016-07-14 16:45] VITALS: BP 134/60
== END 2016-07-14 19:09 | DRG 811 ==
LOC: EME → EDBD 23:06 → EDOF 07-09 02:21 → 4EAST 07-09 02:21
PROVIDERS: Emergency Medicine; Internal Medicine
DX: D50.0 Iron deficiency anemia secondary to blood loss (chronic) (principal); I26.99 Other pulmonary embolism without acute cor pulmonale; K92.2 Gastrointestinal hemorrhage, unspecified; I48.2 Chronic atrial fibrillation; R42 Dizziness and giddiness; J44.9 Chronic obstructive pulmonary disease, unspecified; I25.10 Atherosclerotic heart disease of native coronary artery without angina pectoris; I10 Essential (primary) hypertension; G62.9 Polyneuropathy, unspecified; F41.9 Anxiety disorder, unspecified; F32.9 Major depressive disorder, single episode, unspecified; E66.9 Obesity, unspecified; Z68.29 Body mass index [BMI] 29.0-29.9, adult; M19.90 Unspecified osteoarthritis, unspecified site; K31.819 Angiodysplasia of stomach and duodenum without bleeding; I78.1 Nevus, non-neoplastic; Z87.891 Personal history of nicotine dependence; Z79.01 Long term (current) use of anticoagulants; Z86.711 Personal history of pulmonary embolism; Z86.79 Personal history of other diseases of the circulatory system
CPT/HCPCS: 71020; 71275; 80053; 82948; 83036; 83880; 84484; 85025 91; 85027; 85379; 85610; 85730; 93005; 93970; 94640; 94640 76; 94799; 97530 GO; 99202; 99281; 99285; J1650; J1815; J1940; J7040